=== PATIENT | male | born 1960 | race African-American/Black ===

== ENCOUNTER 2019-02-12 05:57 | Day surgery (SDC) | payer OTHER, SELFPAY ==
[2019-02-12] MEDS ORDERED: cefOXitin 2 GM VIAL ONE (07:09)
[2019-02-12] MEDS ORDERED: Sodium Chloride 0.9% 100 ML ONE (07:10)
[2019-02-12] MEDS ORDERED: Bupivacaine/Epinephrine 0.25% 30 ML VIAL ONE (07:51)
[2019-02-12] MEDS ORDERED: Midazolam HCl 2 mg/2 ml Vial ONE (08:08)
[2019-02-12] MEDS ORDERED: Famotidine/PF 20 mg/2ml Vial ONE (08:08)
[2019-02-12] MEDS ORDERED: Fentanyl 100 MCG/2 ML VIAL ONE (08:08)
[2019-02-12] MEDS ORDERED: Scopolamine 1.5 mg/72 hour Patch ONE (08:08)
[2019-02-12] MEDS ORDERED: SUGAMMADEX SODIUM 200 MG/2 ML VIAL ONE (08:49)
[2019-02-12] MEDS ORDERED: Labetalol HCl 100 MG/20 ML VIAL ONE (09:20)
[2019-02-12] MEDS ORDERED: Morphine 4 MG/ML VIAL ONE (09:58)
[2019-02-12] MEDS ORDERED: HYDROcodone/Acetaminophen 5/325 mg Tablet ONE ×2 (11:12→12:04)
--- NOTE | 2019-02-12 11:48 | OP ---
DATE OF PROCEDURE: 02/12/2019 PREOPERATIVE DIAGNOSIS: Acute cholecystitis. PROCEDURE PERFORMED: Laparoscopic cholecystectomy. INDICATIONS: A 58-year-old male with 24-hour history of severe right upper quadrant pain radiating to back, associated with nausea. Ultrasound showed cholelithiasis. FINDINGS: His gallbladder was full of medium size gallstones. The cystic duct with a small caliber. DESCRIPTION OF PROCEDURE: After informed consent was obtained, the patient was taken to the operating room, given general endotracheal anesthesia, placed in supine position. Abdomen was prepped and draped in usual fashion. Local anesthesia infiltrated subcutaneously and deep, and a subumbilical incision was performed. Subcu divided sharply. The fascia was grasped with two stay sutures of 0 Vicryl placed in each side of midline. Midline incised. Digital palpation revealed no local adhesions. A blunt 12 mm trocar inserted. Pneumoperitoneum was created to a pressure of 15 mmHg. A 0-degree laparoscope was inserted under direct vision. Three 5 mm ports were placed subcostally. The gallbladder was grasped and advanced superiorly. Peritoneum lysed distally, revealed cystic duct artery in critical view. These were triply ligated with hemoclips and divided. The gallbladder removed from its fossa utilizing electrocautery, removed from the abdomen through the umbilical port. Hemostasis assured. The wound was irrigated. Irrigation fluid removed. The fascia was closed with interrupted 0 Vicryl suture. The skin was closed with interrupted 4-0 Rapide. Dermabond applied. The patient tolerated the procedure well, transferred to Recovery in good condition. Sponge and needle count verified correct x2. Job ID: [id number]
== END 2019-02-12 12:15 | disposition home or self-care (01) ==
LOC: SDC 05:57
PROVIDERS: ATTEND Surgery
PROC: 0FT44ZZ Resection of Gallbladder, Percutaneous Endoscopic Approach (ICD-10-PCS; principal; 2019-02-12)
DX: K80.12 Calculus of gallbladder with acute and chronic cholecystitis without obstruction (principal); E78.00 Pure hypercholesterolemia, unspecified; I10 Essential (primary) hypertension; Z79.899 Other long term (current) drug therapy
CPT/HCPCS: 88304; 93005; 93010; J0694; J2250; J2270; J3010; J3490; S0028